=== PATIENT | female | born 1980 | race Caucasian/White ===

== ENCOUNTER 2017-10-02 11:40 | Inpatient (IN) | payer OTHER ==
[~2017-10-02] VITALS: Ht 154.9 cm; Wt 102.5 kg
--- NOTE | ~2017-10-02 | PR ---
[place], [place] PROGRESS NOTE NAME: CAROLYNN SRIVASTAVA [facility] #: [id number] UNIT #: [id number] ROOM: 526 DOCTOR: TALON CONDE MD,GERARDO BIRTHDATE: [birth year] DOS: 10/04/2017 SUBJECTIVE: She has been noted significant reduction of respiratory symptom the last one, probably continue corticosteroids, bronchodilators, and antibiotics as well as nebulizer medication. OBJECTIVE: VITAL SIGNS: Recorded showed normal temperature, respiratory rate 20, heart rate 74, blood pressure 114/57. The pulse oxygen saturation on room air 96% saturation. HEENT: No acute change. NECK: Supple. CARDIOVASCULAR: S1, S2 audible. LUNGS: Without any crackles or rhonchi. Minimal wheezing were noted. The air entry was noted much better. ABDOMEN: Soft, nontender. IMPRESSION: 1. The patient was noted significant improvement in acute bronchial asthma exacerbation and acute bronchitis at this time with current medical management. 2. Steroid-induced hyperglycemia as well. PLAN OF MANAGEMENT: The patient could be considered from discharge at this time without any change in treatment, otherwise will be necessary. All other supportive therapy, plan of management and care. Usual treatment. GERARDO HANLEY MD CM:DAYAN [id number] GERARDO CONDE MD 10/05/17 0027 interface
--- NOTE | ~2017-10-02 | CON ---
[place], [place] REPORT OF CONSULTATION NAME: CAROLYNN SRIVASTAVA [facility] #: [id number] UNIT #: [id number] ROOM: 526 DOCTOR: GERARDO WHITLEY MD BIRTHDATE: [birth year] DOS: 10/03/2017 CONSULTATION REQUESTED BY: Hospitalist services. REASON FOR CONSULTATION: Ongoing acute respiratory complaints. HISTORY OF PRESENT ILLNESS: This is a 37-year-old white female patient who has been admitted under care of hospitalist service on 10/02/2017. She reported having symptoms of coughing with general weakness and fatigue for the patient and wheezing for the past several weeks where the symptoms have been noted with gradual progression for this patient not responding to treatment. The shortness of breath was noted with moderate exertion with wheezing and tightness in the chest. She did not report any symptoms of her chest pain. She denies symptoms of hemoptysis. The patient had been admitted to the hospital at this time and being managed for the current ongoing assessment of bronchial asthma and other medical illnesses. REVIEW OF SYSTEMS: CONSTITUTIONAL: Fatigue and tiredness reported. Denies symptoms of fever or chills. EYES: Denies any burning, redness, or tenderness. EAR, NOSE, AND THROAT: Denies any symptoms of sore throat, hoarseness, otalgia, or postnasal drainage. CARDIOVASCULAR: Denies any edema, pain of the lower extremities, palpitation or anginal pain. GASTROINTESTINAL: Symptoms of dysphagia, nausea, vomiting, diarrhea, abdominal pain, hematemesis, melena, or any abnormal weight loss history. GENITOURINARY: Symptoms of dysuria, suprapubic pain, hematuria. SKIN: Denies any lesions or rashes. CENTRAL NERVOUS SYSTEM: No dizziness, headache, diplopia, syncopal episodes. Remaining systems were reviewed. They were noted all negative. PAST MEDICAL HISTORY: The patient was known with history of bronchial asthma. The patient not treated at this time. Bronchial asthma has been reported since childhood. Chronic obesity. SOCIAL HISTORY: The patient stated that she is . Has 3 children lived at home. The present in the room with the patient as well. There was no history of alcohol use, illicit drug use reported. PAST SURGICAL HISTORY: Reported as tubal ligation. FAMILY HISTORY: History about father was unknown. Mother is living, 70 years old with history of COPD. HOME MEDICATIONS: Essentially none taken regular basis. DRUG ALLERGY: No known drug allergies. [place], [place] REPORT OF CONSULTATION [facility]: [facility]IVASTAVA [facility] [id number] UNIT #: [id number] ROOM: 526 DOCTOR: TALON CONDE MD,GERARDO BIRTHDATE: [birth year] LABORATORY DATA: The patient's CBC on 10/02/2017 was noted completely normal. Lactic acid 3.1 on admission, later on, 2.0. The influenza A and B, nasal washing antigen negative. CMP of the patient 10/02/2017, glucose 190, BUN and creatinine was normal. The remaining LFTs are normal except total protein mildly elevated at 8.1. The CBC of this morning repeated WBC count ____, otherwise the CBC remains normal. CMP this morning, glucose 279, BUN 8, creatinine 1.09, sodium 135, phosphorus 2.3. The chest x-ray of the patient, which was done, a single view in the Emergency Room was noted without any acute abnormalities. CT of the chest was also reviewed ordered by primary care attending on 10/02/2017 but the patient does not show any evidence of pleural fluid. Gross pulmonary infiltration with the scattered reticular infiltration was noted in the lower lungs bilaterally. There was no significant pleural effusions. PHYSICAL EXAMINATION: GENERAL: The patient is a 37-year-old white female who has been noted currently awake and alert without any distress. Height of 5 feet 1 inch, weight of 226 pounds, BMI of 42.7. VITAL SIGNS: The patient shows a normal temperature, respiratory rate 18-22, heart rate of 113-86, blood pressure 153/76-130/65. Pulse oxygen saturation of the patient on room air 95% saturation. HEENT: Head was atraumatic. Eyes nonicterus. Decreased posterior pharyngeal space. NECK: Supple, short and obese. CARDIOVASCULAR SYSTEM: S1, S2 audible. LUNGS: Diffuse expiratory wheezing was noted in the lungs bilaterally. There were no crackles. ABDOMEN: Soft, obese, nontender. Bowel sounds present. CENTRAL NERVOUS SYSTEM: Nonfocal. Cranial nerves 2-12 intact. No focal deficit. EXTREMITIES: The patient without any acute edema. Chronic obesity was noted. MUSCULOSKELETAL: No deformities. SKIN: Visible skin, no lesions or rashes. IMPRESSION: 1. The patient will be admitted to the hospital noted with acute onset of bronchial asthma with acute exacerbation with bronchitis. Bronchitis could be viral or bacterial in origin. 2. Recurrent opacity, which has noted on the lung, etiology was unclear. At the present time may be related to the current acute illness or infection. 3. Hyperglycemia related to use of the corticosteroid therapy. 4. Tachycardia related to underlying bronchial asthma with exacerbation. PLAN OF MANAGEMENT: The patient has been getting IV Solu-Medrol 60 mg q.8 hours, will be continued. Continuation of the bronchodilators as ordered and the current combination antibiotic no changes need to be done. Cough has been noted mostly nonproductive. Symptomatic management of cough. The patient is already getting Mucinex 1200 mg p.o. b.i.d., which will be continued. Additional treatment changes need to be made for the patient based on progression of the illness. Order the respiratory viral profile for patient [place], [place] REPORT OF CONSULTATION NAME: CAROLYNN SRIVASTAVA UNIT #: [id number] ROOM: 526 DOCTOR: GERARDO WHITLEY MD BIRTHDATE: [birth year] nasopharyngeal wash for this patient for completion assessment of any viral etiology. Supportive therapy, plan of management and other care. Additional treatment changes to be made for the patient based on the progression of the illness. Medical management of the hyperglycemia, sliding scale insulin coverage will be continued. Dose of the corticosteroids will be decreased tomorrow morning depends on further improvement in respiratory symptoms. Thanks for allowing me to participate in the care of this patient. GERARDO HANLEY MD CM:CONSTR:REPORT OF CONSULTATION 1411 10/03/171956 interface
[~2017-10-02 11:40] MED LIST: K-Dur 20MEQ20 MEQ PO; LASIX40 MG PO; MACROBID100 M1 PO
[2017-10-02 11:54] VITALS: BP 168/93
[2017-10-02 12:49] LABS: BASO # 0.1 10*3/uL (0.0-0.1); BASO % 0.5 % (0.0-1.0); EOS # 0.1 10*3/uL (0.0-0.4); EOS % 1.2 % (1.0-4.0); HEMATOCRIT 39.6 % (37.0-47.0); HEMOGLOBIN 13.5 g/dl (12.0-16.0); LYMPH # 2.9 10*3/uL (1.3-4.4); MEAN CELL VOLUME 80.8 fl (81.0-99.0); MEAN CORPUSCULAR HGB 27.6 pg (27.0-31.0); MEAN CORPUSCULAR HGB CONC 34.1 g/dl (33.0-37.0); MEAN PLATELET VOLUME 9.6 fl (9.6-12.3); MONO # 0.6 10*3/uL (0.1-1.0); MONO % 5.5 % (3.0-9.0); NEUT % 65.1 % (47.0-73.0); PLATELET COUNT AUTOMATED 375 10*3/uL (130-400); RED CELL DISTRI WIDTH 14.4 % (0-14.5); WHITE BLOOD COUNT 10.7 10*3/uL (4.8-10.8)
[2017-10-02 13:04] LABS: ALBUMIN 3.6 gm/dl (3.1-4.5); ALKALINE PHOSPHATASE 61 U/L (45-117); BUN 8 mg/dl (7-24); CHLORIDE 102 mmol/L (98-107); CREATININE 0.97 mg/dL (0.55-1.02); POTASSIUM 3.5 mmol/L (3.5-5.1); SGOT/AST 17 IU/L (3-35); SGPT/ALT 21 U/L (12-78); SODIUM 136 mmol/L (136-145); TOTAL PROTEIN 8.4 gm/dL (6.4-8.2)
[2017-10-02 16:00] VITALS: BP 143/86
[2017-10-02 20:00] VITALS: BP 153/76
[2017-10-03] VITALS: BP 143/73
[2017-10-03 07:24] LABS: BASO % 0.2 % (0.0-1.0); HEMOGLOBIN 12.7 g/dl (12.0-16.0); LYMPH # 1.4 10*3/uL (1.3-4.4); LYMPH % 10.1 % (27.0-41.0); MEAN CELL VOLUME 83.3 fl (81.0-99.0); MEAN CORPUSCULAR HGB 28.6 pg (27.0-31.0); MEAN CORPUSCULAR HGB CONC 34.3 g/dl (33.0-37.0); MONO # 0.1 10*3/uL (0.1-1.0); NEUT # 11.9 10*3/uL (2.3-7.9); NEUT % 87.6 % (47.0-73.0); PLATELET COUNT AUTOMATED 390 10*3/uL (130-400); RED BLOOD COUNT 4.44 10*6/uL (4.10-5.10); RED CELL DISTRI WIDTH 14.8 % (0-14.5); WHITE BLOOD COUNT 13.6 10*3/uL (4.8-10.8)
[2017-10-03 07:49] LABS: ALBUMIN 3.6 gm/dl (3.1-4.5); ALKALINE PHOSPHATASE 56 U/L (45-117); BUN 8 mg/dl (7-24); CHLORIDE 100 mmol/L (98-107); CHOLESTEROL 161 mg/dL (<200); CREATININE 1.09 mg/dL (0.55-1.02); HDL CHOLESTEROL 55 mg/dl (40-60); LDL CHOLESTEROL 83 mg/dL (9-159); PHOSPHOROUS 2.3 mg/dL (2.5-4.9); POTASSIUM 3.9 mmol/L (3.5-5.1); SGOT/AST 14 IU/L (3-35); SGPT/ALT 24 U/L (12-78); SODIUM 135 mmol/L (136-145); TOTAL PROTEIN 8.5 gm/dL (6.4-8.2); TRIGLYCERIDES 114 mg/dl (<150); VLDL CHOLESTEROL 23 mg/dL (6-40)
[2017-10-03 07:54] LABS: THYROID STIM HORMONE (HS) 0.682 uIU/ml (0.358-4.75)
[2017-10-03 08:00] VITALS: BP 124/68
[2017-10-03 09:35] LABS: VITAMIN D, 25-HYDROXY 15.3 ng/mL (30-100)
[2017-10-03 12:00] VITALS: BP 138/65
[2017-10-03 16:00] VITALS: BP 142/71
[2017-10-03 20:00] VITALS: BP 136/70
[2017-10-04] VITALS: BP 134/67
[2017-10-04 06:33] LABS: BUN 13 mg/dl (7-24); CHLORIDE 99 mmol/L (98-107); CREATININE 1.06 mg/dL (0.55-1.02); POTASSIUM 4.5 mmol/L (3.5-5.1); SODIUM 135 mmol/L (136-145)
[2017-10-04 06:39] LABS: BASO % 0.2 % (0.0-1.0); HEMATOCRIT 34.3 % (37.0-47.0); HEMOGLOBIN 11.1 g/dl (12.0-16.0); LYMPH # 1.2 10*3/uL (1.3-4.4); LYMPH % 6.6 % (27.0-41.0); MEAN CELL VOLUME 84.3 fl (81.0-99.0); MEAN CORPUSCULAR HGB 27.3 pg (27.0-31.0); MEAN CORPUSCULAR HGB CONC 32.4 g/dl (33.0-37.0); MEAN PLATELET VOLUME 10.1 fl (9.6-12.3); MONO # 0.4 10*3/uL (0.1-1.0); MONO % 2.1 % (3.0-9.0); NEUT % 89.6 % (47.0-73.0); PLATELET COUNT AUTOMATED 363 10*3/uL (130-400); RED BLOOD COUNT 4.07 10*6/uL (4.10-5.10); RED CELL DISTRI WIDTH 15.2 % (0-14.5); WHITE BLOOD COUNT 18.9 10*3/uL (4.8-10.8)
[2017-10-04 08:00] VITALS: BP 114/57
[2017-10-04] MEDS ORDERED: AVPAK AZITHROM250 MG PO (12:56)
[2017-10-04] MEDS ORDERED: PREDNISONE10 MG PO (12:56)
[2017-10-04] MEDS ORDERED: VITAMIN D5000 UNI1 PO (12:56)
[2017-10-04] MEDS ORDERED: METFORMIN500 MG PO (12:56)
[2017-10-04] MEDS ORDERED: PROVENTIL HFA6.7 GM INH (12:56)
[2017-10-04] MEDS ORDERED: MUCINEX1200 M1 PO (12:56)
[2017-10-07 02:07] LABS: ADENOVIRUS Negative (Negative); INFLUENZA A Negative (Negative); INFLUENZA B Negative (Negative); METAPNEUMOVIRUS Negative (Negative); PARAINFLUENZA 1 Negative (Negative); PARAINFLUENZA 2 Negative (Negative); PARAINFLUENZA 3 Negative (Negative); RHINOVIRUS Negative (Negative); RSV A Negative (Negative); RSV B Negative (Negative)
== END 2017-10-04 13:43 | disposition home or self-care (01) | DRG 871 ==
LOC: ED 11:40 → 5E 13:11 → EDHOLD 13:11 → 5E 13:54
PROVIDERS: Internal Medicine; Internal Medicine Critical Care Medicine; Nurse Practitioner Family; ADMIT Internal Medicine
DX: A41.9 Sepsis, unspecified organism (principal); J18.9 Pneumonia, unspecified organism; K76.0 Fatty (change of) liver, not elsewhere classified; E44.1 Mild protein-calorie malnutrition; E11.65 Type 2 diabetes mellitus with hyperglycemia; J45.41 Moderate persistent asthma with (acute) exacerbation; Z68.41 Body mass index [BMI] 40.0-44.9, adult; J20.9 Acute bronchitis, unspecified; R65.20 Severe sepsis without septic shock; T38.0X5A Adverse effect of glucocorticoids and synthetic analogues, initial encounter; M94.0 Chondrocostal junction syndrome [Tietze]; E66.01 Morbid (severe) obesity due to excess calories; Z98.51 Tubal ligation status; Z82.49 Family history of ischemic heart disease and other diseases of the circulatory system; Z82.5 Family history of asthma and other chronic lower respiratory diseases; Y92.89 Other specified places as the place of occurrence of the external cause; Z79.51 Long term (current) use of inhaled steroids; Z79.2 Long term (current) use of antibiotics; Z79.84 Long term (current) use of oral hypoglycemic drugs; Z79.899 Other long term (current) drug therapy

== ENCOUNTER 2018-02-23 08:20 | Inpatient (IN) | payer OTHER ==
[~2018-02-23] VITALS: Ht 154.9 cm; Wt 97.2 kg
--- NOTE | ~2018-02-23 | CON ---
[place], [place] REPORT OF CONSULTATION NAME: CAROLYNN SRIVASTAVA [facility] #: [id number] UNIT #: [id number] ROOM: 504 DOCTOR: TALON CONDE MDGERARDO BIRTHDATE: [birth year] DOS: 02/24/2018 REASON FOR CONSULTATION: The assessment of ongoing symptoms of exacerbation of bronchial asthma. HISTORY OF PRESENT ILLNESS: This is a 37-year-old white female who has been admitted to the hospital on 02/23/2018. The patient presented to the Emergency Room, as the patient reported symptoms of having increased coughing and sore throat. The symptom started for the patient about a week ago. She has been noted worsening symptoms of cough, it remains dry without any sputum expectoration. She denies symptoms of chest pain or hemoptysis. The patient denies symptoms of wheezing with that. The patient has been admitted to the hospital. The patient currently treated for the acute pneumonia. REVIEW OF SYSTEMS: CONSTITUTIONAL: No reported symptoms of fever or chills at home. EYES: Denies any burning, redness or discharge. EAR, NOSE AND THROAT SYMPTOMS: The patient noted to have nasal congestion and sore throat. Denies any postnasal drainage at this time. CARDIOVASCULAR: Denies any angina pain, edema, pain of the lower extremities. She does report symptoms of chest pain, which she described across the chest wall on a scale of 1-10 up to 8 for this patient, sharp to dull. GASTROINTESTINAL SYMPTOMS: Nausea without any vomiting. Denies symptoms of dysphagia, abnormal weight loss history. GENITOURINARY SYMPTOMS: Dysuria, suprapubic pain, hematuria. MUSCULOSKELETAL SYMPTOMS: Acute joint pain, redness, or tenderness. SKIN: Denies any abnormal lesions or rashes. CENTRAL NERVOUS SYSTEM: There is an high diplopia, syncopal episode. Remaining systems were reviewed, they were noted all negative. PAST MEDICAL HISTORY: 1. History of longstanding bronchial asthma, use of Ventolin HFA inhaler p.r.n. use. 2. Chronic obesity. 3. The patient has type 2 diabetes mellitus. SOCIAL HISTORY: The patient , has 3 children lived at home. Denies use of alcohol use, tobacco and illicit drugs. PAST SURGICAL HISTORY: Noted as tubal ligation. FAMILY HISTORY: Dad was unknown. Mother is living, 70 years old with history of COPD. HOME MEDICATIONS: Noted as: 1. Ventolin HFA inhaler p.r.n. use. 2. Metformin 500 mg p.o. b.i.d. DRUG ALLERGY HISTORY: No known drug allergies. [place], [place] REPORT OF CONSULTATION NAME: CAROLYNN SRIVASTAVA UNIT #: [id number] ROOM: [facility] DOCTOR: TALON CONDE MD,[facility] BIRTHDATE: [birth year] PHYSICAL EXAMINATION: GENERAL: This is a 37-year-old female who has been currently resting comfortably. The patient sitting on the bed without acute distress. He has been present in the room. Moderate obesity. VITAL SIGNS: Height of 5 feet 1 inch, weight of 240.5. Temperature 99 degree Fahrenheit on admission, later normal temperature, respiratory rate 18-20, heart rate was 109-98 on admission noted 138, blood pressure on admission noted 172/95, currently noted 124/65, pulse oxygen saturation noted on room air 94% saturation. HEENT: Head was atraumatic. Eyes, nonicterus. NECK: Supple. CARDIOVASCULAR: S1, S2 is audible. LUNGS: Noted clear to any wheezing or crackles at this time. ABDOMEN: Noted soft, nontender, bowel sounds present. EXTREMITIES: The patient noted without any acute edema, clubbing or cyanosis. MUSCULOSKELETAL: Without any obvious deformities or lesions. GENITOURINARY: The patient noted without any acute focal neurologic deficit. CENTRAL NERVOUS SYSTEM: Cranial nerves 2-12 intact. LABORATORY DATA: Noted on admission, WBC count 16.9, hemoglobin and hematocrit normal and platelet count were normal. Lactic acid 5.7 on admission, followup was 2.0 yesterday. The PT, PTT, noted normal yesterday. Beta HCG however was noted as negative in the urine. The CMP that was done yesterday, glucose 273, BUN 9, creatinine was normal, chloride of 97. Influenza A and B, nasal washing antigen negative. Arterial blood gas, pH of 7.45, pCO2 of 32, pO2 of 72 on room air yesterday at rest. BMP at this morning, glucose 265, BUN and creatinine were normal. Phosphorus 1.8. CBC today; WBC count 11.3, hemoglobin 11, hematocrit 34.3 and platelet count of 299,000. PT/PTT repeated again today noted normal. The strep rapid antigen noted negative with pending culture results. Urine culture was reported possible contaminated species. Chest x-ray that was done 2-view, reviewed, does not show any acute major area of consolidation, infiltration. CT scan of the chest that was done with contrast for the patient was personally reviewed. The parenchymal window for this patient were assessed with the patient shows patchy area of infiltration, the patient noted with some area of consolidation associated that involving the right middle lobe. A small patchy infiltration was noted in the left lingula. IMPRESSION: 1. Acute pneumonia, which has been noted on this admission as a cause of the current shortness of breath, fever and chills with a differential diagnosis could be considered typical or atypical infection. The typical infection would be considered community acquired infection, streptococcal pneumonia; however, the viral etiology to be excluded. Legionella pneumonia in the atypical or mycoplasma to be considered. 2. Type 2 diabetes mellitus, which has been noted, uncontrolled. PLAN OF TREATMENT: Continue the antibiotic, Rocephin and Zithromax. Obtain the urine for legionella antigen and the blood for mycoplasma. Urine strep antigen was also ordered as well. Respiratory viral panel will be obtained as well. [place], [place] REPORT OF CONSULTATION NAME: CAROLYNN SRIVASTAVA UNIT #: [id number] ROOM: 504 DOCTOR: TALON CONDE MD,GERARDO BIRTHDATE: [birth year] Additional treatment changes to be made for this patient based on progression of the illness. All other supportive therapy, plan of management and care plan. Supportive plan of management and therapies. Additional treatment changes will be done for the patient based on the progression of the illness. She would not require any corticosteroids at this time. She does not seem to have acute exacerbation of bronchial asthma or bronchial asthma noted previously, remains stable. GERARDO HANLEY MD CM:CONSTR:REPORT OF CONSULTATION 1418 02/24/18 2421 interface
--- NOTE | ~2018-02-23 | PR ---
[place], [place] PROGRESS NOTE NAME: CAROLYNN SRIVASTAVA UNIT #: [id number] ROOM: 504 DOCTOR: GERARDO WHITLEY MD BIRTHDATE: [birth year] DOS: 02/25/2018 PULMONARY PROGRESS NOTE SUBJECTIVE: The patient noted with reduction in the cough as previously. Denies symptoms of nausea or vomiting. Denies symptoms of chest pain or any abdominal pain. The patient was noted without any symptoms of hemoptysis. There was no chest pain at this time. OBJECTIVE: VITAL SIGNS: Normal temperature, respiratory rate 20, heart rate 84, blood pressure 110/80. Pulse oxygen saturation on room air 97% saturation. HEENT: Shows head was atraumatic. Eyes nonicterus. NECK: Supple. CARDIOVASCULAR: S1, S2 is audible. LUNGS: The patient was noted without any wheezing or crackles. ABDOMEN: Soft, obese, nontender. EXTREMITIES: Without any acute edema. LABORATORY DATA: CBC today, WBC count of 17.1, hemoglobin 10.2, hematocrit 32.0, platelet count was normal, 89% segmented neutrophils. BMP this morning noted glucose of 240, BUN 8, creatinine was normal. IMPRESSION: 1. The patient with nodular infiltration noted in the right middle lobe involving significant amount of area. 2. Acute pneumonia with atypical etiology would be considered. 3. Leukocytosis has been noted on this patient as well, related to possibility of corticosteroids and other etiology. PLAN OF TREATMENT: Obtain a chest x-ray to reassess the progression of the current pulmonary infiltration. Continuation of the bronchodilators and oxygen supplementation. Supportive therapy, plan of management, usual care. Additional treatment changes to be made based on progression of the illness. [place], [place] PROGRESS NOTE NAME: CAROLYNN SRIVASTAVA UNIT #: [id number] ROOM: 504 DOCTOR: GERARDO WHITLEY MD BIRTHDATE: [birth year] GERARDO HANLEY MD CM:PNTRANS [id number] GERARDO CONDE MD 02/25/182135 interface
--- NOTE | ~2018-02-23 | EKG ---
[place], [place] ELECTROCARDIOGRAM REPORT NAME: CAROLYNN SRIVASTAVA UNIT #: [id number] ROOM: 504 DOCTOR: TALON CONDE MD,GERARDO BIRTHDATE: [birth year] DOS: 02/23/2018 Echocardiogram was done on 02/23/2018, at 08:54 a.m. shows sinus tachycardia, heart rate 121 beats per minute, otherwise normal. GERARDO HANLEY MD CM:EKGRPT:ELECTROCARDIOGRAM REPORT [id number] GERARDO CONDE MD
[2018-02-23 08:20] VITALS: BP 172/95
[~2018-02-23 08:20] MED LIST changes: +AVPAK AZITHROM250 MG PO; +METFORMIN500 MG PO; +MUCINEX1200 M1 PO; +PREDNISONE10 MG PO; +PROVENTIL HFA6.7 GM INH; +VITAMIN D5000 UNI1 PO
[2018-02-23 09:11] LABS: BASO % 0.2 % (0.0-1.0); EOS % 0.1 % (1.0-4.0); HEMATOCRIT 39.8 % (37.0-47.0); HEMOGLOBIN 12.9 g/dl (12.0-16.0); LYMPH % 12.1 % (27.0-41.0); MEAN CELL VOLUME 82.2 fl (81.0-99.0); MEAN CORPUSCULAR HGB 26.7 pg (27.0-31.0); MEAN CORPUSCULAR HGB CONC 32.4 g/dl (33.0-37.0); MEAN PLATELET VOLUME 9.8 fl (9.6-12.3); MONO # 0.6 10*3/uL (0.1-1.0); MONO % 3.7 % (3.0-9.0); NEUT % 83.2 % (47.0-73.0); PLATELET COUNT AUTOMATED 347 10*3/uL (130-400); RED BLOOD COUNT 4.84 10*6/uL (4.10-5.10); RED CELL DISTRI WIDTH 13.3 % (0-14.5); WHITE BLOOD COUNT 16.8 10*3/uL (4.8-10.8)
[2018-02-23 09:25] LABS: ACT PARTIAL THROMBO TIME 23.4 SECONDS (19.5-32.1)
[2018-02-23 09:28] LABS: ALBUMIN 3.7 gm/dl (3.1-4.5); ALKALINE PHOSPHATASE 50 U/L (45-117); BUN 9 mg/dl (7-24); CHLORIDE 97 mmol/L (98-107); POTASSIUM 4.5 mmol/L (3.5-5.1); SGOT/AST 10 IU/L (3-35); SGPT/ALT 18 U/L (12-78); SODIUM 137 mmol/L (136-145); TOTAL PROTEIN 8.3 gm/dL (6.4-8.2)
[2018-02-23 09:29] LABS: TROPONIN I < 0.015 ng/ml (<0.045)
[2018-02-23 10:32] LABS: ABG BASE EXCESS -0.7 mmol/L (-2.0-2.0); ABG HCO3 22.1 mmol/l (22-26); ABG O2 SATURATION 94.9 % (95-97); ARTERIAL BLOOD GAS PCO2 32.3 mmHg (35-45); ARTERIAL BLOOD GAS PH 7.451 (7.35-7.45); ARTERIAL BLOOD GAS PO2 72.8 mmHg (80-90)
[2018-02-23 10:36] LABS: BILIRUBIN NEGATIVE (NEGATIVE); BLOOD TRACE-INTACT (NEGATIVE); CLARITY SL CLOUDY (CLEAR); COLOR YELLOW (YELLOW); GLUCOSE 2+ (NEGATIVE); KETONE NEGATIVE (NEGATIVE); LEUKO ESTERASE 3+ (NEGATIVE); NITRITE NEGATIVE (NEGATIVE); PH 6.5 (5.0-9.0); SPECIFIC GRAVITY <= 1.005 (1.005-1.030); UROBILINOGEN 0.2 E.U./dl (0.2-1.0)
[2018-02-23 10:55] LABS: BACTERIA 2+; EPITHELIAL CELLS 20-30
[2018-02-23 10:56] LABS: WBC 41-50 wbc/hpf (0-5)
[2018-02-23 11:02] VITALS: BP 114/57
[2018-02-23 12:30] VITALS: BP 104/46
[2018-02-23 16:00] VITALS: BP 137/76
[2018-02-23 20:00] VITALS: BP 136/68
[2018-02-24] VITALS: BP 119/62
[2018-02-24 07:04] LABS: HEMATOCRIT 34.3 % (37.0-47.0); HEMOGLOBIN 11.1 g/dl (12.0-16.0); MEAN CELL VOLUME 82.7 fl (81.0-99.0); MEAN CORPUSCULAR HGB 26.7 pg (27.0-31.0); MEAN CORPUSCULAR HGB CONC 32.4 g/dl (33.0-37.0); MEAN PLATELET VOLUME 9.9 fl (9.6-12.3); PLATELET COUNT AUTOMATED 299 10*3/uL (130-400); RED BLOOD COUNT 4.15 10*6/uL (4.10-5.10); RED CELL DISTRI WIDTH 13.8 % (0-14.5); WHITE BLOOD COUNT 11.3 10*3/uL (4.8-10.8)
[2018-02-24 07:24] LABS: BUN 6 mg/dl (7-24); CHLORIDE 103 mmol/L (98-107); CHOLESTEROL 132 mg/dL (<200); CREATININE 0.84 mg/dL (0.55-1.02); PHOSPHOROUS 1.8 mg/dL (2.5-4.9); SODIUM 136 mmol/L (136-145); TRIGLYCERIDES 68 mg/dl (<150); VLDL CHOLESTEROL 14 mg/dL (6-40)
[2018-02-24 07:33] LABS: HDL CHOLESTEROL 54 mg/dl (40-60); LDL CHOLESTEROL 64 mg/dL (9-159); THYROID STIM HORMONE (HS) 0.569 uIU/ml (0.358-4.75)
[2018-02-24 07:34] LABS: BASOPHILS 1 % (0-1); TOTAL CELLS COUNTED 100 #CELLS
[2018-02-24 07:35] LABS: PLATELET SUFFICIENCY NORMAL (NORMAL)
[2018-02-24 07:49] LABS: ACT PARTIAL THROMBO TIME 23.9 SECONDS (20.8-31.5)
[2018-02-24 08:00] VITALS: BP 124/65
[2018-02-24 08:25] LABS: VITAMIN D, 25-HYDROXY 21.9 ng/mL (30-100)
[2018-02-24 12:00] VITALS: BP 122/68
[2018-02-24 16:00] VITALS: BP 121/51
[2018-02-24 20:00] VITALS: BP 116/76
[2018-02-25] VITALS: BP 124/64
[2018-02-25 06:39] LABS: BUN 8 mg/dl (7-24); CHLORIDE 108 mmol/L (98-107); CREATININE 0.85 mg/dL (0.55-1.02); POTASSIUM 3.9 mmol/L (3.5-5.1); SODIUM 138 mmol/L (136-145)
[2018-02-25 06:42] LABS: HEMOGLOBIN 10.2 g/dl (12.0-16.0); MEAN CELL VOLUME 83.6 fl (81.0-99.0); MEAN CORPUSCULAR HGB 26.6 pg (27.0-31.0); MEAN CORPUSCULAR HGB CONC 31.9 g/dl (33.0-37.0); MEAN PLATELET VOLUME 10.2 fl (9.6-12.3); PLATELET COUNT AUTOMATED 339 10*3/uL (130-400); RED BLOOD COUNT 3.83 10*6/uL (4.10-5.10); RED CELL DISTRI WIDTH 14.2 % (0-14.5); WHITE BLOOD COUNT 17.7 10*3/uL (4.8-10.8)
[2018-02-25 07:24] LABS: PLATELET SUFFICIENCY NORMAL (NORMAL); TOTAL CELLS COUNTED 100 #CELLS
[2018-02-25 08:00] VITALS: BP 110/80
[2018-02-25] MEDS ORDERED: PREDNISONE10 MG PO (08:14)
[2018-02-25] MEDS ORDERED: LEVAQUIN750 M1 PO (08:14)
[2018-02-25] MEDS ORDERED: DUONEB 3 MG/3 ML3 M1 INH (11:44)
[2018-02-25 14:06] LABS: MYCOPLASMA PNEUMONIAE IGG 820 U/mL (0-99); MYCOPLASMA PNEUMONIAE IGM <770 U/mL (0-769)
[2018-03-01 05:07] LABS: ADENOVIRUS Negative (Negative); INFLUENZA A Negative (Negative); INFLUENZA B Negative (Negative); METAPNEUMOVIRUS Negative (Negative); PARAINFLUENZA 1 Negative (Negative); PARAINFLUENZA 2 Negative (Negative); PARAINFLUENZA 3 Negative (Negative); RHINOVIRUS Negative (Negative); RSV A Negative (Negative); RSV B Negative (Negative)
== END 2018-02-25 11:31 | disposition home or self-care (01) | DRG 871 ==
LOC: ED 08:20 → EDHOLD 09:56 → 5E 09:56
PROVIDERS: Emergency Medicine; Internal Medicine; Internal Medicine Critical Care Medicine
DX: A41.9 Sepsis, unspecified organism (principal); J18.9 Pneumonia, unspecified organism; N17.0 Acute kidney failure with tubular necrosis; J96.01 Acute respiratory failure with hypoxia; R65.21 Severe sepsis with septic shock; E87.3 Alkalosis; J45.901 Unspecified asthma with (acute) exacerbation; E44.1 Mild protein-calorie malnutrition; N30.00 Acute cystitis without hematuria; Z68.41 Body mass index [BMI] 40.0-44.9, adult; E66.01 Morbid (severe) obesity due to excess calories; E83.39 Other disorders of phosphorus metabolism; K76.0 Fatty (change of) liver, not elsewhere classified; E11.65 Type 2 diabetes mellitus with hyperglycemia; Z98.51 Tubal ligation status; Z82.5 Family history of asthma and other chronic lower respiratory diseases; Z82.49 Family history of ischemic heart disease and other diseases of the circulatory system; Z79.899 Other long term (current) drug therapy; Z79.84 Long term (current) use of oral hypoglycemic drugs

== ENCOUNTER → 2018-03-10 | Outpatient (CLI) | payer OTHER ==
[~2018-03-10] MED LIST changes: +DUONEB 3 MG/3 ML3 M1 INH; +LEVAQUIN750 M1 PO
[2018-03-10 16:31] LABS: HEMATOCRIT 38.9 % (37.0-47.0); HEMOGLOBIN 12.2 g/dl (12.0-16.0); MEAN CELL VOLUME 85.9 fl (81.0-99.0); MEAN CORPUSCULAR HGB 26.9 pg (27.0-31.0); MEAN CORPUSCULAR HGB CONC 31.4 g/dl (33.0-37.0); MEAN PLATELET VOLUME 9.7 fl (9.6-12.3); RED BLOOD COUNT 4.53 10*6/uL (4.10-5.10); RED CELL DISTRI WIDTH 15.9 % (0-14.5); WHITE BLOOD COUNT 13.8 10*3/uL (4.8-10.8)
== END | disposition home or self-care (01) ==
LOC: US 15:00 → LAB 15:02
PROVIDERS: Nurse Practitioner Women's Health
DX: N93.8 Other specified abnormal uterine and vaginal bleeding (principal)

== ENCOUNTER → 2018-10-04 | Outpatient (CLI) | payer OTHER | END | disposition home or self-care (01) | LOC: US 10:24 | DX: D25.9 Leiomyoma of uterus, unspecified (principal); N83.9 Noninflammatory disorder of ovary, fallopian tube and broad ligament, unspecified ==

== ENCOUNTER 2019-12-10 08:33 | Emergency (ER) | payer OTHER ==
[~2019-12-10] VITALS: Ht 154.9 cm; Wt 89.8 kg
[~2019-12-10 08:33] MED LIST changes: +HYDROCODONE-AC1 EAC1 PO; +IBU800 M1 PO
[2019-12-10 08:40] VITALS: BP 145/85
[2019-12-10 09:03] LABS: BASO # 0.1 10*3/uL (0.0-0.1); BASO % 0.6 % (0.0-1.0); EOS # 0.1 10*3/uL (0.0-0.4); EOS % 1.2 % (1.0-4.0); HEMATOCRIT 40.2 % (37.0-47.0); LYMPH # 3.1 10*3/uL (1.3-4.4); LYMPH % 38.5 % (27.0-41.0); MEAN CELL VOLUME 83.6 fl (81.0-99.0); MEAN CORPUSCULAR HGB CONC 32.3 g/dl (33.0-37.0); MEAN PLATELET VOLUME 9.8 fl (9.6-12.3); MONO # 0.5 10*3/uL (0.1-1.0); MONO % 6.3 % (3.0-9.0); NEUT # 4.3 10*3/uL (2.3-7.9); NEUT % 52.9 % (47.0-73.0); PLATELET COUNT AUTOMATED 387 10*3/uL (130-400); RED BLOOD COUNT 4.81 10*6/uL (4.10-5.10); RED CELL DISTRI WIDTH 14.1 % (0-14.5); WHITE BLOOD COUNT 8.1 10*3/uL (4.8-10.8)
[2019-12-10 09:16] LABS: ALBUMIN 3.7 gm/dl (3.1-4.5); ALKALINE PHOSPHATASE 56 U/L (45-117); BUN 8 mg/dl (7-24); CHLORIDE 107 mmol/L (98-107); CREATININE 1.01 mg/dL (0.55-1.02); LIPASE 157 U/L (73-393); POTASSIUM 3.8 mmol/L (3.5-5.1); SGOT/AST 13 IU/L (3-35); SGPT/ALT 21 U/L (12-78); SODIUM 139 mmol/L (136-145); TOTAL PROTEIN 8.2 gm/dL (6.4-8.2)
[2019-12-10 09:20] LABS: BACTERIA 4+; BILIRUBIN 1+ (NEGATIVE); BLOOD NEGATIVE (NEGATIVE); CLARITY CLOUDY (CLEAR); COLOR YELLOW (YELLOW); EPITHELIAL CELLS TNTC; GLUCOSE NEGATIVE (NEGATIVE); KETONE NEGATIVE (NEGATIVE); LEUKO ESTERASE NEGATIVE (NEGATIVE); NITRITE NEGATIVE (NEGATIVE); UROBILINOGEN 0.2 E.U./dl (0.2-1.0)
[2019-12-10] MEDS ORDERED: CYCLOBENZAPRINE10 MG PO (09:38)
[2019-12-10] MEDS ORDERED: NAPROSYN500 MG PO (09:38)
[2019-12-10] MEDS ORDERED: TYLENOL325 M1 PO (09:38)
== END 2019-12-10 09:51 | disposition home or self-care (01) ==
LOC: ED 08:33
PROVIDERS: Emergency Medicine
DX: M54.42 Lumbago with sciatica, left side (principal); J45.909 Unspecified asthma, uncomplicated; G89.29 Other chronic pain; E11.9 Type 2 diabetes mellitus without complications; E66.01 Morbid (severe) obesity due to excess calories; I10 Essential (primary) hypertension; Z79.899 Other long term (current) drug therapy; Z90.710 Acquired absence of both cervix and uterus; Z68.41 Body mass index [BMI] 40.0-44.9, adult

== ENCOUNTER → 2020-02-16 | Outpatient (CLI) | payer OTHER ==
[~2020-02-16] MED LIST changes: +CYCLOBENZAPRINE10 MG PO; +NAPROSYN500 MG PO; +TYLENOL325 M1 PO
== END | disposition home or self-care (01) ==
LOC: MRI 10:45
DX: M47.816 Spondylosis without myelopathy or radiculopathy, lumbar region (principal); M47.817 Spondylosis without myelopathy or radiculopathy, lumbosacral region; M48.061 Spinal stenosis, lumbar region without neurogenic claudication; M25.78 Osteophyte, vertebrae; M54.30 Sciatica, unspecified side

== ENCOUNTER → 2021-12-01 | Outpatient (CLI) | payer OTHER | END | disposition home or self-care (01) | LOC: RAD 16:25 | PROVIDERS: ATTEND Nurse Practitioner Primary Care | DX: R06.02 Shortness of breath (principal) ==

== ENCOUNTER → 2021-12-12 | Outpatient (CLI) | payer OTHER | END | disposition home or self-care (01) | LOC: RAD 16:35 | PROVIDERS: ATTEND Nurse Practitioner Primary Care | DX: M48.07 Spinal stenosis, lumbosacral region (principal); M25.78 Osteophyte, vertebrae ==

== ENCOUNTER 2023-05-31 14:34 | Emergency (ER) | payer OTHER ==
[~2023-05-31] VITALS: Ht 154.9 cm; Wt 97.5 kg
[2023-05-31 14:45] VITALS: BP 155/91
[2023-05-31] MEDS ORDERED: AMLODIPINE BESYL5 MG PO (14:49)
[2023-05-31] MEDS ORDERED: GNP FISH OIL 11 EAC1 PO (14:49)
[2023-05-31] MEDS ORDERED: METFORMIN850 MG PO (14:51)
[2023-05-31] MEDS ORDERED: VITAMIN D3125 MCG PO (14:51)
[2023-05-31] MEDS ORDERED: PAROXETINE HCL30 MG PO (14:51)
[2023-05-31] MEDS ORDERED: OMEPRAZOLE MAGN20 MG PO (14:51)
[2023-05-31] MEDS ORDERED: BUSPAR5 MG PO (14:52)
[2023-05-31] MEDS ORDERED: OXYBUTYNIN CHLOR5 M1 PO (14:52)
== END 2023-05-31 16:56 | disposition home or self-care (01) ==
LOC: ED 14:34
DX: S00.81XA Abrasion of other part of head, initial encounter (principal); S09.90XA Unspecified injury of head, initial encounter; R11.0 Nausea; I10 Essential (primary) hypertension; J45.909 Unspecified asthma, uncomplicated; E11.9 Type 2 diabetes mellitus without complications; Z98.51 Tubal ligation status; W22.8XXA Striking against or struck by other objects, initial encounter; Y93.89 Activity, other specified; Y92.89 Other specified places as the place of occurrence of the external cause; Y99.8 Other external cause status

== ENCOUNTER → 2023-08-30 | Outpatient (CLI) | payer OTHER ==
[~2023-08-30] MED LIST changes: +AMLODIPINE BESYL5 MG PO; +BUSPAR5 MG PO; +GNP FISH OIL 11 EAC1 PO; +METFORMIN850 MG PO; +OMEPRAZOLE MAGN20 MG PO; +OXYBUTYNIN CHLOR5 M1 PO; +PAROXETINE HCL30 MG PO; +VITAMIN D3125 MCG PO
[2023-08-30 10:33] LABS: BASO # 0.1 10*3/uL (0.0-0.1); BASO % 0.5 % (0.0-1.0); EOS # 0.1 10*3/uL (0.0-0.4); EOS % 0.5 % (1.0-4.0); HEMATOCRIT 39.3 % (37.0-47.0); LYMPH # 2.9 10*3/uL (1.3-4.4); LYMPH % 31.1 % (27.0-41.0); MEAN CELL VOLUME 82.6 fl (81.0-99.0); MEAN CORPUSCULAR HGB 27.5 pg (27.0-31.0); MEAN CORPUSCULAR HGB CONC 33.3 g/dl (33.0-37.0); MEAN PLATELET VOLUME 9.4 fl (9.6-12.3); MONO # 0.5 10*3/uL (0.1-1.0); MONO % 4.9 % (3.0-9.0); NEUT # 5.9 10*3/uL (2.3-7.9); NEUT % 62.5 % (47.0-73.0); PLATELET COUNT AUTOMATED 421 10*3/uL (130-400); RED BLOOD COUNT 4.76 10*6/uL (4.10-5.10); RED CELL DISTRI WIDTH 13.9 % (0-14.5); WHITE BLOOD COUNT 9.4 10*3/uL (4.8-10.8)
[2023-08-30 11:14] LABS: ALKALINE PHOSPHATASE 54 U/L (46-116); BUN 6 mg/dl (9-23); CHLORIDE 100 mmol/L (98-107); CHOLESTEROL 176 mg/dL (<200); LDL CHOLESTEROL 87 mg/dL (9-159); POTASSIUM 3.9 mmol/L (3.4-5.1); SGPT/ALT 18 U/L (5-49); TOTAL PROTEIN 8.1 gm/dL (6.0-8.0); TRIGLYCERIDES 213 mg/dl (<150)
== END | disposition home or self-care (01) ==
LOC: LAB 10:02
PROVIDERS: ATTEND Nurse Practitioner Primary Care
DX: I10 Essential (primary) hypertension (principal); E78.1 Pure hyperglyceridemia; E55.9 Vitamin D deficiency, unspecified; E11.9 Type 2 diabetes mellitus without complications

== ENCOUNTER → 2023-10-09 | Outpatient (CLI) | payer OTHER ==
[2023-10-09 09:39] LABS: BASO # 0.1 10*3/uL (0.0-0.1); BASO % 0.5 % (0.0-1.0); EOS # 0.2 10*3/uL (0.0-0.4); EOS % 2.3 % (1.0-4.0); HEMATOCRIT 40.1 % (37.0-47.0); LYMPH % 30.3 % (27.0-41.0); MEAN CELL VOLUME 84.4 fl (81.0-99.0); MEAN CORPUSCULAR HGB 27.2 pg (27.0-31.0); MEAN CORPUSCULAR HGB CONC 32.2 g/dl (33.0-37.0); MEAN PLATELET VOLUME 9.7 fl (9.6-12.3); MONO # 0.5 10*3/uL (0.1-1.0); NEUT % 61.4 % (47.0-73.0); PLATELET COUNT AUTOMATED 390 10*3/uL (130-400); RED BLOOD COUNT 4.75 10*6/uL (4.10-5.10); RED CELL DISTRI WIDTH 14.7 % (0-14.5); WHITE BLOOD COUNT 9.8 10*3/uL (4.8-10.8)
[2023-10-09 10:00] LABS: ALKALINE PHOSPHATASE 55 U/L (46-116); BUN 6 mg/dl (9-23); CHLORIDE 100 mmol/L (98-107); POTASSIUM 4.1 mmol/L (3.4-5.1); SGPT/ALT 17 U/L (5-49); TOTAL PROTEIN 7.9 gm/dL (6.0-8.0)
== END | disposition home or self-care (01) ==
LOC: LAB 09:09
PROVIDERS: ATTEND Nurse Practitioner Primary Care
DX: R05.3 Chronic cough (principal); I10 Essential (primary) hypertension; R79.89 Other specified abnormal findings of blood chemistry

== ENCOUNTER → 2024-03-02 | Outpatient (CLI) | payer OTHER ==
[~2024-03-02] MED LIST changes: +Albuterol Sulfate 2.5 MG/3 ML VIAL NEB ONE
== END | disposition home or self-care (01) ==
LOC: CP 09:16 → CT 11:00
PROVIDERS: ATTEND Nurse Practitioner Primary Care
DX: J98.11 Atelectasis (principal); J44.9 Chronic obstructive pulmonary disease, unspecified; R05.3 Chronic cough; K76.0 Fatty (change of) liver, not elsewhere classified

== ENCOUNTER → 2024-05-05 | Outpatient (CLI) | payer OTHER ==
[~2024-05-05] MED LIST changes: -Albuterol Sulfate 2.5 MG/3 ML VIAL NEB ONE
[2024-05-05 11:03] LABS: CHOLESTEROL 157 mg/dL (<200); LDL CHOLESTEROL 76 mg/dL (9-159); TRIGLYCERIDES 171 mg/dl (<150)
== END | disposition home or self-care (01) ==
LOC: LAB 09:46 → US 10:30
PROVIDERS: ATTEND Nurse Practitioner Primary Care
DX: R16.0 Hepatomegaly, not elsewhere classified (principal); K76.0 Fatty (change of) liver, not elsewhere classified; R10.9 Unspecified abdominal pain; R11.0 Nausea; E78.2 Mixed hyperlipidemia; E11.9 Type 2 diabetes mellitus without complications

== ENCOUNTER → 2024-05-19 | Outpatient (CLI) | payer OTHER | END | disposition home or self-care (01) | LOC: LAB 14:31 | PROVIDERS: ATTEND Nurse Practitioner Primary Care | DX: R39.9 Unspecified symptoms and signs involving the genitourinary system (principal) ==

== ENCOUNTER → 2025-01-26 | Outpatient (CLI) | payer OTHER ==
[2025-01-26 07:40] LABS: BASO % 0.4 % (0.0-1.0); EOS # 0.1 10*3/uL (0.0-0.4); EOS % 1.1 % (1.0-4.0); HEMATOCRIT 40.3 % (37.0-47.0); MEAN CELL VOLUME 81.3 fl (81.0-99.0); MEAN CORPUSCULAR HGB 26.6 pg (27.0-31.0); MEAN CORPUSCULAR HGB CONC 32.8 g/dl (33.0-37.0); MEAN PLATELET VOLUME 9.4 fl (9.6-12.3); MONO # 0.5 10*3/uL (0.1-1.0); MONO % 6.2 % (3.0-9.0); NEUT # 3.9 10*3/uL (2.3-7.9); NEUT % 54.2 % (47.0-73.0); PLATELET COUNT AUTOMATED 406 10*3/uL (130-400); RED BLOOD COUNT 4.96 10*6/uL (4.10-5.10); RED CELL DISTRI WIDTH 13.3 % (0-14.5); WHITE BLOOD COUNT 7.2 10*3/uL (4.8-10.8)
[2025-01-26 08:07] LABS: ALKALINE PHOSPHATASE 59 U/L (46-116); BUN 8 mg/dl (9-23); CHLORIDE 102 mmol/L (98-107); CHOLESTEROL 135 mg/dL (<200); LDL CHOLESTEROL 69 mg/dL (9-159); SGPT/ALT 20 U/L (5-49); TRIGLYCERIDES 165 mg/dl (<150)
== END | disposition home or self-care (01) ==
LOC: LAB 07:03
PROVIDERS: ATTEND Nurse Practitioner Primary Care
DX: I10 Essential (primary) hypertension (principal); E11.65 Type 2 diabetes mellitus with hyperglycemia

== ENCOUNTER → 2025-04-16 | Outpatient (CLI) | payer OTHER | END | disposition home or self-care (01) | LOC: MAMMO 13:48 | PROVIDERS: ATTEND Nurse Practitioner Primary Care | DX: Z12.31 Encounter for screening mammogram for malignant neoplasm of breast (principal); R92.323 Mammographic fibroglandular density, bilateral breasts ==

== ENCOUNTER → 2025-06-08 | Outpatient (CLI) | payer OTHER | END | disposition home or self-care (01) | LOC: RAD 08:44 | PROVIDERS: ATTEND Nurse Practitioner Primary Care | DX: M48.07 Spinal stenosis, lumbosacral region (principal); M54.9 Dorsalgia, unspecified ==